=== PATIENT | female | born 1965 | race Two or more races ===

== ENCOUNTER 2022-08-28 09:33 | Emergency (ER) | payer MEDICAID ==
[~2022-08-28] VITALS: Ht 149.9 cm; Wt 72.2 kg
[2022-08-28] MEDS ORDERED: InsuLIN REG 1unit/0.01ml Soln (100units/ml) IV ONE (10:00)
[2022-08-28] MEDS ORDERED: SODIUM CHLORIDE 0.9% 1,000 ML IV ONE (10:00)
[2022-08-28 10:07] LABS: Basophils # (auto) 0 10 ^3/uL (0-0.2); Basophils % (auto) 0.4 % (0.0-2.0); Eosinophils # (auto) 0 10 ^3/uL (0-0.8); Eosinophils % (auto) 0.6 % (0.0-7.0); Hematocrit 42.1 % (36.0-46.0); Hemoglobin 14.8 g/dL (12.2-16.2); Lymphocytes # (auto) 1.7 10 ^3/uL (0.4-5.4); Lymphocytes % (auto) 29.7 % (10.0-50.0); Mean Corpuscular Hemoglobin 29.1 pg (28.0-32.0); Mean Corpuscular Hgb Conc. 35.2 g/dL (32.0-36.0); Mean Corpuscular Volume 82.6 fL (80.0-100.0); Monocytes # (auto) 0.3 10 ^3/uL (0-1.3); Monocytes % (auto) 5.2 % (0.0-12.0); Neutrophils # (auto) 3.6 10 ^3/uL (1.6-8.6); Neutrophils % (auto) 64.1 % (37.0-80.0); Red Blood Cells 5.09 10^6/uL (4.0-5.20); Red Cell Distribution Width 13.1 % (11.8-14.3); White Blood Cell 5.6 10^3/uL (4.4-10.8)
[2022-08-28 10:26] LABS: Potassium 3.7 mmol/L (3.5-5.1)
[2022-08-28 10:33] LABS: Albumin 3.8 g/dL (3.4-5.0); BUN/Creatinine Ratio 15.6; Bilirubin, Total 0.7 mg/dL (0.2-1.0); Calcium 8.6 mg/dL (8.5-10.1); Total Protein 6.9 g/dL (6.4-8.2)
[2022-08-28] MEDS ORDERED: PRED20TA2 PO (11:29)
[2022-08-28] MEDS ORDERED: PANT40TA2 PO (11:29)
[2022-08-28] MEDS ORDERED: methylPREDNISolone SOD SUCC 125 MG/2 ML VL IV ONE (11:30)
[2022-08-28 15:00] VITALS: BP 154/65
== END 2022-08-28 15:03 | disposition home or self-care (01) ==
LOC: ER 09:39
DX: G51.0 Bell's palsy (principal); R73.9 Hyperglycemia, unspecified; Z79.899 Other long term (current) drug therapy
CPT/HCPCS: 36415; 70450; 80053; 83036; 84484; 85025; 93005; 96361; 96374; 99285; J2930; J7030

== ENCOUNTER → 2022-08-29 | Emergency (ER) | payer MEDICAID ==
[~2022-08-29] VITALS: Ht 157.5 cm; Wt 70.0 kg
[~2022-08-29] MED LIST: PANT40TA2 PO; PRED20TA2 PO
[2022-08-29 02:23] VITALS: BP 145/95
== END | disposition left against medical advice (07) ==
LOC: EDUNIT# 02:15 → EDBD 02:18 → ER 02:18
DX: R11.2 Nausea with vomiting, unspecified (principal); R94.31 Abnormal electrocardiogram [ECG] [EKG]; Z53.21 Procedure and treatment not carried out due to patient leaving prior to being seen by health care provider
CPT/HCPCS: 36415; 84484; 93005

== ENCOUNTER 2022-12-13 11:19 | Emergency (ER) | payer MEDICAID ==
[~2022-12-13] VITALS: Ht 152.4 cm; Wt 71.9 kg
[2022-12-13 11:30] VITALS: BP 157/81
[2022-12-13] MEDS ORDERED: ACET-1080 PO (12:12)
[2022-12-13] MEDS ORDERED: KETO2CRE4 TOP (12:12)
== END 2022-12-13 12:31 | disposition home or self-care (01) ==
LOC: ER 11:19
DX: B35.4 Tinea corporis (principal); Z88.6 Allergy status to analgesic agent

== ENCOUNTER 2023-01-22 12:29 | Emergency (ER) | payer MEDICAID ==
[~2023-01-22] VITALS: Ht 149.9 cm; Wt 71.6 kg
[~2023-01-22 12:29] MED LIST changes: +ACET-1080 PO; +KETO2CRE4 TOP
[2023-01-22 12:59] VITALS: BP 143/66
[2023-01-22] MEDS ORDERED: CETI10CA PO (13:20)
[2023-01-22] MEDS ORDERED: TRIA0.1O TOP (13:20)
[2023-01-22] MEDS ORDERED: CALA1SUS2 EX (13:20)
== END 2023-01-22 13:34 | disposition home or self-care (01) ==
LOC: ER 12:29
DX: L30.8 Other specified dermatitis (principal); Z88.6 Allergy status to analgesic agent

== ENCOUNTER 2023-05-12 08:58 | Emergency (ER) | payer MEDICAID ==
[~2023-05-12] VITALS: Ht 152.4 cm; Wt 68.3 kg
[~2023-05-12 08:58] MED LIST changes: +CALA1SUS2 EX; +CETI10CA PO; +TRIA0.1O TOP
[2023-05-12 09:36] VITALS: BP 162/81; PULSE 86; RESP 18; TEMP 97.2; O2SAT 99
[2023-05-12] MEDS ORDERED: GABA-1308 PO (10:27)
== END 2023-05-12 10:30 | disposition home or self-care (01) ==
LOC: ER 08:58
DX: E11.40 Type 2 diabetes mellitus with diabetic neuropathy, unspecified (principal); Z79.899 Other long term (current) drug therapy
CPT/HCPCS: 82962

== ENCOUNTER 2023-08-03 08:16 | Emergency (ER) | payer MEDICAID ==
[~2023-08-03] VITALS: Ht 167.6 cm; Wt 69.9 kg
[~2023-08-03 08:16] MED LIST changes: +GABA-1308 PO
[2023-08-03 12:39] VITALS: BP 148/84; PULSE 90; RESP 19; TEMP 98.6; O2SAT 97
[2023-08-03] MEDS ORDERED: MELO7.5T7 PO (13:04)
[2023-08-03] MEDS ORDERED: GABA-1308 PO (13:04)
[2023-08-03] MEDS ORDERED: KETOROLAC TROMETH 30 MG/ML 1ML VIAL IM ONE (13:15)
[2023-08-03] MEDS ORDERED: methylPREDNISolone SOD SUCC 125 MG/2 ML VL IM ONE (13:15)
== END 2023-08-03 13:44 | disposition home or self-care (01) ==
LOC: ER 08:16
DX: M79.605 Pain in left leg (principal)
CPT/HCPCS: 96372; 99284; J1885; J2930

== ENCOUNTER 2023-08-28 09:06 | Emergency (ER) | payer MEDICAID, OTHER ==
[~2023-08-28] VITALS: Ht 160 cm; Wt 68.5 kg
[~2023-08-28 09:06] MED LIST changes: +MELO7.5T7 PO
[2023-08-28 10:17] VITALS: BP 119/59; PULSE 86; RESP 16; TEMP 97.4; O2SAT 98
[2023-08-28] MEDS ORDERED: ACET-1080 PO (11:52)
[2023-08-28] MEDS ORDERED: GABA-1250 PO (11:52)
== END 2023-08-28 11:56 | disposition home or self-care (01) ==
LOC: ER 09:06
DX: M54.42 Lumbago with sciatica, left side (principal); M79.652 Pain in left thigh; E11.9 Type 2 diabetes mellitus without complications; Z79.899 Other long term (current) drug therapy
CPT/HCPCS: 93971

== ENCOUNTER 2023-10-09 08:56 | Emergency (ER) | payer OTHER ==
[~2023-10-09] VITALS: Ht 154.9 cm; Wt 68.0 kg
[~2023-10-09 08:56] MED LIST changes: +GABA-1250 PO
[2023-10-09 09:22] VITALS: BP 153/72; PULSE 83; RESP 16; TEMP 98.3; O2SAT 97
[2023-10-09] MEDS ORDERED: MELO7.5T7 PO (09:47)
== END 2023-10-09 09:57 | disposition home or self-care (01) ==
LOC: ER 08:56
DX: M17.12 Unilateral primary osteoarthritis, left knee (principal); I83.92 Asymptomatic varicose veins of left lower extremity
CPT/HCPCS: 73562; 81002

== ENCOUNTER 2024-04-11 08:25 | Emergency (ER) | payer OTHER ==
[~2024-04-11] VITALS: Ht 152.4 cm; Wt 75.9 kg
[2024-04-11 09:46] LABS: Basophils # (auto) 0 10 ^3/uL (0-0.2); Basophils % (auto) 0.2 % (0.0-2.0); Eosinophils # (auto) 0.1 10 ^3/uL (0-0.8); Eosinophils % (auto) 1.4 % (0.0-7.0); Hematocrit 43.8 % (36.0-46.0); Hemoglobin 15.2 g/dL (12.2-16.2); Lymphocytes # (auto) 1.9 10 ^3/uL (0.4-5.4); Lymphocytes % (auto) 34.4 % (10.0-50.0); Mean Corpuscular Hemoglobin 29.3 pg (28.0-32.0); Mean Corpuscular Hgb Conc. 34.7 g/dL (32.0-36.0); Mean Corpuscular Volume 84.4 fL (80.0-100.0); Monocytes # (auto) 0.3 10 ^3/uL (0-1.3); Monocytes % (auto) 5.6 % (0.0-12.0); Neutrophils # (auto) 3.2 10 ^3/uL (1.6-8.6); Neutrophils % (auto) 58.4 % (37.0-80.0); Platelet Count (auto) 164 10^3/uL (140-450); Red Blood Cells 5.19 10^6/uL (4.0-5.20); Red Cell Distribution Width 13.2 % (11.8-14.3); White Blood Cell 5.5 10^3/uL (4.4-10.8)
[2024-04-11 09:56] LABS: Chloride 103 mmol/L (98-107); Potassium 4.1 mmol/L (3.5-5.1); Sodium 137 mmol/L (136-145)
[2024-04-11 09:57] LABS: Anion Gap 6 (5-15); Calcium 9.5 mg/dL (8.7-10.4); Carbon Dioxide 28 mmol/L (20-30)
[2024-04-11 10:02] LABS: BUN/Creatinine Ratio 9.8 (10.0-20.0); Blood Urea Nitrogen 6 mg/dL (9-23); Glucose 345 mg/dL (74-106)
[2024-04-11 12:07] VITALS: BP 167/62; TEMP 98.7
[2024-04-11 12:10] LABS: Urine Bacteria None Seen /hpf (None Seen)
[2024-04-11 12:11] VITALS: PULSE 72; RESP 16; O2SAT 98
[2024-04-11 12:17] LABS: Urine Blood Negative /uL (Negative); Urine Clarity Clear (Clear); Urine Color Light-Yellow (Yellow); Urine Protein, UAD Negative (Negative); Urine Specific Gravity 1.025 (1.001-1.035); Urine Urobilinogen Normal (Negative); Urine WBC 3 /hpf (0 - 5); Urine pH 6.5 (5.0-9.0)
== END 2024-04-11 13:31 | disposition home or self-care (01) ==
LOC: ER 08:27
DX: M54.12 Radiculopathy, cervical region (principal); Z98.890 Other specified postprocedural states; Z79.899 Other long term (current) drug therapy
CPT/HCPCS: 36415; 72052; 80048; 81001; 85025; 93005